=== PATIENT | male | born 1975 | race Two or more races ===

== ENCOUNTER 2023-11-17 14:45 | Inpatient (IN) ==
[2023-11-17] MEDS ORDERED: Pantoprazole VIAL 40 MG VIAL IV ONE (14:57)
[2023-11-17] MEDS ORDERED: Pantoprazole 80 mg in NS BAG 80 MG/250 ML BAG IV ONE (14:57)
[2023-11-17] MEDS ORDERED: cefTRIAXone 1 gm/50 mL D5W 1 GM/50 ML BAG IV ONE (14:57)
[2023-11-17] MEDS ORDERED: Lactated Ringers 1000 ml BAG 1,000 ML IV SCH ×2 (15:00→19:00)
[2023-11-17] MEDS ORDERED: Ondansetron 4 mg VIAL 2 MG/ML 2 ml VIAL IV ONE (15:44)
[2023-11-17 15:45] LABS: Venous Bicarbonate HCO3 23.9 mmol/L (24-28)
[2023-11-17 15:47] LABS: Hematocrit 31.1 % (38-53); Hemoglobin 10.2 g/dL (13.2-16.3); Mean Corpuscular Hemoglobin 26.6 pg (27-33); Mean Corpuscular Hgb Conc 32.7 g/dL (31-36); Mean Corpuscular Volume 81.2 fL (80-97); Mean Platelet Volume 8.6 fL (7.5-11.2); Platelet Count 334 10^3/uL (150-450); Red Blood Count 3.82 10^6/uL (4.06-5.63); Red Cell Distribution Width 14.4 % (12-17); White Blood Count 23.4 10^3/uL (3.6-10.2)
[2023-11-17] MEDS ORDERED: Rocuronium 50 mg VIAL 10 mg/ml 5 ml VIAL (50 mg) ONE (15:49)
[2023-11-17] MEDS ORDERED: Succinylcholine 200 mg VIAL 20 mg/ml 10 ml VIAL (200 mg) ONE (15:50)
[2023-11-17] MEDS ORDERED: Rocuronium 50 mg VIAL 10 mg/ml 5 ml VIAL (50 mg) IV ONE (15:50)
[2023-11-17] MEDS ORDERED: Norepinephrine 4 MG/250mL D5W 4,000 MCG/250 ML BAG IV ONE (15:54)
[2023-11-17 15:58] LABS: Influenza A Molecular Negative (Negative); Influenza B Molecular Negative (Negative)
[2023-11-17] MEDS: Norepinephrine 4 MG/250mL D5W 4,000 MCG/250 ML BAG IV SCH ×2 (15:58→22:48)
[2023-11-17 16:04] LABS: Albumin 3.6 g/dL (3.2-5.2); Albumin/Globulin Ratio 1.6 (1-3); Calcium 8.3 mg/dL (8.6-10.3); Creatinine, Serum 0.93 mg/dL (0.67-1.17); Globulin 2.3 g/dL (2-4); Potassium 4.2 mmol/L (3.5-5.0); Total Bilirubin 0.3 mg/dL (0.2-1.0); Total Protein 5.9 g/dL (6.4-8.9); eGFR CKD-EPI 101.9 (>60)
[2023-11-17] MEDS ORDERED: Propofol 10 mg/ml 100 ML BTL 1,000 MG/100 ML BTL ONE ×2 (16:07→18:40)
[2023-11-17 16:10] LABS: ABS Eosinophils 0.1 10^3/uL (0.0-0.5); ABS Monocytes 1.2 10^3/uL (0.0-1.1); ABS Nucleated RBC 0.01 10^3/ul; Eosinophil % 0.6 %; Lymphocyte % 8.5 %
[2023-11-17] MEDS: Ketamine HCL 50 mg/ml 10 ml VIAL (500 MG) IV ONE ×2 (16:10→16:11)
[2023-11-17] MEDS: Propofol 10 mg/ml 100 ML BTL 1,000 MG/100 ML BTL IV SCH ×3 (16:13→23:34)
[2023-11-17] MEDS ORDERED: Iohexol 350 (CONTRAST) 500 ML MDV IV ONE (16:21)
[2023-11-17] MEDS ORDERED: Erythromycin Lactobionate IV 250 MG in NS 0.9% 100 ml BAG 100 ML IVPB ONE (16:28)
[2023-11-17] MEDS ORDERED: fentaNYL 100 mcg/2 ml 50 MCG/ML VIAL IV SLOW PU ONE ×2 (16:46→17:22)
[2023-11-17] MEDS ORDERED: fentaNYL 100 mcg/2 ml 50 MCG/ML VIAL ONE ×3 (16:46→18:54)
[2023-11-17 16:50] LABS: INR 1.21 (0.83-1.13)
[2023-11-17] MEDS: fentaNYL 100 mcg/2 ml 50 MCG/ML VIAL IV SLOW PU ONE ×2 (17:32→18:29)
[2023-11-17 18:00] LABS: High Sensitivity Troponin 1 Hr 117 pg/mL (<20)
[2023-11-17] MEDS ORDERED: fentaNYL INFUSION 50 mcg/mL VL 2,500 MCG/50 ML VIAL IV SCH (18:00)
[2023-11-17 18:17] LABS: Rapid COVID-19 Molecular Undetected (Undetected)
[2023-11-17 18:40] LABS: Urine Appearance Clear; Urine Bilirubin Negative (Negative); Urine Blood Negative (Negative); Urine Color Yellow; Urine Glucose Negative (Negative); Urine Ketones 1+ (Negative); Urine Nitrite Negative (Negative); Urine Protein Negative (Negative); Urine Specific Gravity 1.023 (1.002-1.030); Urine Urobilinogen Negative (Negative)
[2023-11-17] MEDS ORDERED: Midazolam 10 mg/10 ml VIAL 1 mg/ml 10 ml VIAL (10 mg) ONE (18:54)
[2023-11-17] MEDS ORDERED: Pantoprazole VIAL 40 MG VIAL IV SCH (21:00)
[2023-11-17] MEDS: Chlorhexidine MOUTHWASH 0.12% 15 ML UDC TOPICAL SCH (21:17)
[2023-11-17] MEDS: Pantoprazole VIAL 40 MG VIAL IV SCH (21:18)
[2023-11-18 00:54] LABS: Hematocrit 29.5 % (38-53); Hemoglobin 9.9 g/dL (13.2-16.3)
[2023-11-18 01:07] LABS: Calcium 7.9 mg/dL (8.6-10.3); Creatinine, Serum 0.87 mg/dL (0.67-1.17); Magnesium 1.7 mg/dL (1.9-2.7); Potassium 4.3 mmol/L (3.5-5.0); eGFR CKD-EPI 107.1 (>60)
[2023-11-18 01:26] LABS: Rapid COVID-19 Molecular Undetected (Undetected)
[2023-11-18 01:28] LABS: Influenza A Molecular Negative (Negative); Influenza B Molecular Negative (Negative)
[2023-11-18] MEDS: Chlorhexidine MOUTHWASH 0.12% 15 ML UDC TOPICAL SCH ×4 (02:00→14:30)
[2023-11-18] MEDS ORDERED: Magnesium Sulfate 2 gm BAG 2 GM/50 ML BAG IVPB ONE (02:40)
[2023-11-18] MEDS: Propofol 10 mg/ml 100 ML BTL 1,000 MG/100 ML BTL IV SCH ×2 (04:58→09:47)
[2023-11-18 05:37] LABS: ABS Eosinophils 0.1 10^3/uL (0.0-0.5); ABS Lymphocytes 2.6 10^3/uL (1.0-4.8); ABS Monocytes 1.2 10^3/uL (0.0-1.1); ABS Nucleated RBC 0.01 10^3/ul; Eosinophil % 0.5 %; Hematocrit 28.6 % (38-53); Hemoglobin 9.4 g/dL (13.2-16.3); Lymphocyte % 21.6 %; Mean Corpuscular Hemoglobin 26.9 pg (27-33); Mean Corpuscular Hgb Conc 32.9 g/dL (31-36); Mean Corpuscular Volume 81.8 fL (80-97); Mean Platelet Volume 8.2 fL (7.5-11.2); Nucleated Red Blood Cells % 0.1 %/100WBC (0.0-0.8); Platelet Count 258 10^3/uL (150-450); Red Cell Distribution Width 14.5 % (12-17); White Blood Count 11.8 10^3/uL (3.6-10.2)
[2023-11-18 05:53] LABS: Calcium 7.8 mg/dL (8.6-10.3); Creatinine, Serum 0.86 mg/dL (0.67-1.17); Magnesium 2.4 mg/dL (1.9-2.7); Potassium 3.8 mmol/L (3.5-5.0); eGFR CKD-EPI 107.5 (>60)
[2023-11-18] MEDS: Pantoprazole VIAL 40 MG VIAL IV SCH ×2 (09:46→20:46)
[2023-11-19 04:01] LABS: Calcium 7.6 mg/dL (8.6-10.3); Creatinine, Serum 0.73 mg/dL (0.67-1.17); Magnesium 1.9 mg/dL (1.9-2.7); Potassium 3.6 mmol/L (3.5-5.0); eGFR CKD-EPI 112.9 (>60)
[2023-11-19 04:22] LABS: ABS Eosinophils 0.3 10^3/uL (0.0-0.5); ABS Lymphocytes 2.4 10^3/uL (1.0-4.8); ABS Neutrophils 5.5 10^3/uL (1.5-7.6); ABS Nucleated RBC 0.03 10^3/ul; Eosinophil % 2.9 %; Hematocrit 23.8 % (38-53); Hemoglobin 8.1 g/dL (13.2-16.3); Lymphocyte % 26.1 %; Mean Corpuscular Hemoglobin 27.5 pg (27-33); Mean Corpuscular Hgb Conc 33.9 g/dL (31-36); Mean Corpuscular Volume 81.1 fL (80-97); Mean Platelet Volume 8.7 fL (7.5-11.2); Nucleated Red Blood Cells % 0.3 %/100WBC (0.0-0.8); Platelet Count 224 10^3/uL (150-450); Red Blood Count 2.93 10^6/uL (4.06-5.63); Red Cell Distribution Width 14.5 % (12-17); White Blood Count 9.3 10^3/uL (3.6-10.2)
[2023-11-19] MEDS ORDERED: Magnesium Sulfate IV 1GM/100ML 1 GM/100 ML BAG IV ONE (06:04)
[2023-11-19] MEDS: Pantoprazole VIAL 40 MG VIAL IV SCH ×2 (10:01→22:34)
[2023-11-20] MEDS: Pantoprazole VIAL 40 MG VIAL IV SCH (09:31)
[2023-11-20 10:30] LABS: ABS Basophils 0.1 10^3/uL (0.0-0.1); ABS Eosinophils 0.3 10^3/uL (0.0-0.5); ABS Lymphocytes 1.8 10^3/uL (1.0-4.8); ABS Monocytes 0.8 10^3/uL (0.0-1.1); ABS Neutrophils 5.6 10^3/uL (1.5-7.6); ABS Nucleated RBC 0.01 10^3/ul; Eosinophil % 3.9 %; Hematocrit 23.4 % (38-53); Hemoglobin 7.8 g/dL (13.2-16.3); Lymphocyte % 20.9 %; Mean Corpuscular Hemoglobin 27.2 pg (27-33); Mean Corpuscular Hgb Conc 33.5 g/dL (31-36); Mean Corpuscular Volume 81.3 fL (80-97); Mean Platelet Volume 8.3 fL (7.5-11.2); Nucleated Red Blood Cells % 0.1 %/100WBC (0.0-0.8); Platelet Count 230 10^3/uL (150-450); Red Blood Count 2.88 10^6/uL (4.06-5.63); Red Cell Distribution Width 14.4 % (12-17); White Blood Count 8.4 10^3/uL (3.6-10.2)
[2023-11-20 10:50] LABS: Calcium 8.1 mg/dL (8.6-10.3); Creatinine, Serum 0.74 mg/dL (0.67-1.17); Potassium 3.9 mmol/L (3.5-5.0); eGFR CKD-EPI 112.5 (>60)
[2023-11-20 13:49] VITALS: BP 114/68
[2023-11-20] MEDS ORDERED: Polyethylene Glycol 3350 17 GM PACKET PO SCH (21:00)
== END 2023-11-20 16:20 | DRG 242 ==
LOC: ED 14:45 → EDHOLD 18:06 → ICU 19:32 → MEDTELE 11-19 17:38
PROVIDERS: ADMIT Internal Medicine; ATTEND Internal Medicine

== ENCOUNTER 2023-11-23 19:26 | Observation (INO) ==
[2023-11-23 20:14] LABS: ABS Basophils 0.1 10^3/uL (0.0-0.1); ABS Eosinophils 0.4 10^3/uL (0.0-0.5); ABS Lymphocytes 1.8 10^3/uL (1.0-4.8); ABS Monocytes 0.8 10^3/uL (0.0-1.1); ABS Neutrophils 4.8 10^3/uL (1.5-7.6); ABS Nucleated RBC 0.01 10^3/ul; Eosinophil % 5.1 %; Hematocrit 23.3 % (38-53); Hemoglobin 7.8 g/dL (13.2-16.3); Lymphocyte % 23.5 %; Mean Corpuscular Hemoglobin 27.6 pg (27-33); Mean Corpuscular Hgb Conc 33.3 g/dL (31-36); Mean Platelet Volume 7.3 fL (7.5-11.2); Nucleated Red Blood Cells % 0.1 %/100WBC (0.0-0.8); Platelet Count 361 10^3/uL (150-450); Red Blood Count 2.81 10^6/uL (4.06-5.63); Red Cell Distribution Width 15.1 % (12-17); White Blood Count 7.8 10^3/uL (3.6-10.2)
[2023-11-23 20:20] LABS: INR 1.05 (0.83-1.13)
[2023-11-23 20:32] LABS: Albumin 3.4 g/dL (3.2-5.2); Albumin/Globulin Ratio 1.3 (1-3); Calcium 8.6 mg/dL (8.6-10.3); Creatinine, Serum 0.88 mg/dL (0.67-1.17); Globulin 2.7 g/dL (2-4); Potassium 3.8 mmol/L (3.5-5.0); Total Bilirubin 0.2 mg/dL (0.2-1.0); Total Protein 6.1 g/dL (6.4-8.9); eGFR CKD-EPI 106.7 (>60)
[2023-11-23] MEDS ORDERED: Iohexol 350 (CONTRAST) 500 ML MDV IV ONE (21:06)
[2023-11-24 01:12] VITALS: BP 109/66
== END 2023-11-24 01:29 | disposition left against medical advice (07) ==
LOC: EDHOLD 19:26 → ED 19:26 → SUATTDRO 22:45 → MED 11-24 00:56
PROVIDERS: ADMIT Internal Medicine; ATTEND Internal Medicine